=== PATIENT | male | born 1990 | race Caucasian/White ===

== ENCOUNTER 2019-02-20 02:24 | Emergency (ER) | payer OTHER ==
[~2019-02-20] VITALS: Ht 185.4 cm; Wt 117.9 kg
[~2019-02-20 02:24] MED LIST: AZIT250 PO; ERYT.5TO OU
[2019-02-20] MEDS ORDERED: Ciprodex Otic7.5 ML BOTHEARS (03:56)
== END 2019-02-20 04:12 | disposition home or self-care (01) ==
LOC: ER 02:24
DX: H60.93 Unspecified otitis externa, bilateral (principal)
CPT/HCPCS: 82947; 96372; 99283-25; J1885

== ENCOUNTER 2022-06-01 02:08 | Emergency (ER) | payer OTHER ==
[~2022-06-01] VITALS: Ht 188 cm; Wt 120.2 kg
[~2022-06-01 02:08] MED LIST changes: +Ciprodex Otic7.5 ML BOTHEARS
[2022-06-01] MEDS ORDERED: ZOLPIDEM TARTRA10 MG PO (02:39)
[2022-06-01] MEDS ORDERED: NAPR500 PO (04:28)
[2022-06-01] MEDS ORDERED: PRED20 PO (04:28)
[2022-06-01] MEDS ORDERED: CYCL10 PO (04:28)
[2022-06-01] MEDS ORDERED: LIDO700A20 TOP (04:28)
== END 2022-06-01 04:30 | disposition home or self-care (01) ==
LOC: ER 02:08
DX: M54.50 Low back pain, unspecified (principal); M54.10 Radiculopathy, site unspecified; Z79.899 Other long term (current) drug therapy
CPT/HCPCS: 72100; A9270; J1100

== ENCOUNTER 2023-01-27 10:25 | Emergency (ER) | payer OTHER ==
[~2023-01-27] VITALS: Ht 185.4 cm; Wt 114.8 kg
[~2023-01-27 10:25] MED LIST changes: +CYCL10 PO; +LIDO700A20 TOP; +NAPR500 PO; +PRED20 PO; +ZOLPIDEM TARTRA10 MG PO
[2023-01-27 10:42] VITALS: BP 154/113
[2023-01-27 11:01] LABS: BASOPHILS ABSOLUTE AUTO 0.07 K/mm3 (0.00-0.23); BASOPHILS PERCENT AUTO 1 % (0-2); EOSINOPHILS ABSOLUTE AUTO 0.08 K/mm3 (0.00-0.68); EOSINOPHILS PERCENT AUTO 1 % (0-6); Hematocrit 42.5 % (37.0-53.0); Hemoglobin 14.4 g/dL (13.5-17.5); IMMATURE GRAN ABSOLUTE AUTO 0.04 K/mm3 (0.00-0.10); IMMATURE GRAN PERCENT AUTO 0 % (0-1); LYMPHOCYTES ABSOLUTE AUTO 3.01 K/mm3 (0.84-5.20); LYMPHOCYTES PERCENT AUTO 31 % (21-46); MONOCYTES ABSOLUTE AUTO 0.53 K/mm3 (0.16-1.47); MONOCYTES PERCENT AUTO 5 % (4-13); Mean Corpuscular HGB 28.9 pg (26.0-34.0); Mean Corpuscular HGB Conc 33.9 g/dL (31.5-36.5); Mean Corpuscular Volume 85 fL (80-100); Mean Platelet Volume 9.6 fL (9.1-12.4); NEUTROPHILS ABSOLUTE AUTO 6.06 K/mm3 (1.96-9.15); NEUTROPHILS PERCENT AUTO 62 % (41-73); Platelet Count 338 K/mm3 (150-400); RDW Coefficient Variation 11.8 % (11.7-14.2); RDW Standard Deviation 36.3 fL (35.1-46.3); Red Blood Cell Count 4.99 M/mm3 (4.30-5.90); White Blood Cell Count 9.79 K/mm3 (4.00-11.30)
[2023-01-27 11:28] LABS: Albumin, Blood 4.2 g/dL (3.4-5.0); Bilirubin, Total 0.3 mg/dL (0.1-1.0); Bun/Creatinine Ratio 11.8 (12.0-20.0); Creatinine, Blood 0.85 mg/dL (0.60-1.20); Potassium, Blood 4.5 mmol/L (3.5-5.5); Total Protein, Blood 8.2 g/dL (6.4-8.2)
[2023-01-27] MEDS ORDERED: MECL25 PO (15:12)
== END 2023-01-27 15:56 | disposition home or self-care (01) ==
LOC: ER 10:25
PROVIDERS: Student in an Organized Health Care Education/Training Program
DX: R51.9 Headache, unspecified (principal); H53.8 Other visual disturbances; R42 Dizziness and giddiness; R11.0 Nausea; Z79.899 Other long term (current) drug therapy
CPT/HCPCS: 80053; 85025; 96374; 96375; 99284-25; A9270; J1200; J1885; J2765